=== PATIENT | female | born 1965 ===

== ENCOUNTER 2023-05-08 08:26 | Inpatient (IN) | payer OTHER ==
[~2023-05-08] VITALS: Ht 157.5 cm; Wt 58.5 kg
[2023-05-08] MEDS ORDERED: PRALUENT PO (09:39)
[2023-05-08 09:41] LABS: URINE APPEARANCE Clear; URINE BILIRRUBIN Negative (NEGATIVE); URINE BLOOD Negative; URINE COLOR Yellow; URINE GLUCOSE Negative (NEGATIVE); URINE LEUKOCYTE Negative; URINE NITRATE Negative; URINE PROTEIN Negative (NEGATIVE); URINE UROBILINOGEN 0.2 E.U./dl
[2023-05-08 09:45] LABS: URINE BACTERIA 21.4 uL (0.0-1933); URINE EPITHELIAL CELLS 6.4 uL (0.0-38.8); URINE RBC 2.4 uL (0.0-20.8); URINE WBC 36.4 uL (0.0-23.2)
[2023-05-08 10:10] LABS: HEMATOCRIT 39.1 % (36.0-45.00); HEMOGLOBIN 13.2 g/dL (12.0-15.00); MEAN CELL VOLUME 86.5 fL (80.00-100.00); MEAN CORPUSCULAR HEMOGLOBIN 29.1 pg (27.00-32.0); MEAN CORPUSCULAR HGB CONC 33.6 g/dl (32.0-36.0); PLATELET COUNT 237 K/uL (150-450); RED BLOOD COUNT 4.53 M/uL (4.00-6.00); RED CELL DISTRIBUTION WIDTH 14.1 % (11.5-14.5)
[2023-05-08 10:25] LABS: ALBUMIN 3.7 gm/dL (3.4-5.0); BILIRUBIN TOTAL 0.37 mg/dL (0.3-1.2); CALCIUM 9.9 mg/dL (8.5-10.1); CREATININE SERUM 0.86 mg/dL (0.55-1.02); GFR 68.01; GLOBULINA 3.6 G/DL (2.4-3.5); INR 0.98; PARTIAL THROMBOPLASTIN TIME 29.8 SECONDS (22.0-34.0); POTASSIUM 5.1 mEq/L (3.5-5.1); PROTHROMBIN TIME 10.3 SECONDS (9.0-11.5); TOTAL PROTEIN 7.3 gm/dL (6.4-8.2)
[2023-05-10] MEDS ORDERED: PRALUENT P75 MG/1 ML SUBCUTANEO (08:08)
[2023-05-10 15:51] LABS: CREATININE SERUM 0.78 mg/dL (0.55-1.02); GFR 76.12; POTASSIUM 4.84 mEq/L (3.5-5.1)
[2023-05-10 18:56] LABS: HEMATOCRIT 36.2 % (36.0-45.00); HEMOGLOBIN 11.8 g/dL (12.0-15.00); MEAN CELL VOLUME 87.1 fL (80.00-100.00); MEAN CORPUSCULAR HEMOGLOBIN 28.5 pg (27.00-32.0); MEAN CORPUSCULAR HGB CONC 32.7 g/dl (32.0-36.0); PLATELET COUNT 203 K/uL (150-450); RED BLOOD COUNT 4.16 M/uL (4.00-6.00)
[2023-05-11 06:25] LABS: HEMATOCRIT 31.5 % (36.0-45.00); HEMOGLOBIN 10.4 g/dL (12.0-15.00); MEAN CELL VOLUME 84.3 fL (80.00-100.00); MEAN CORPUSCULAR HEMOGLOBIN 27.9 pg (27.00-32.0); MEAN CORPUSCULAR HGB CONC 33.1 g/dl (32.0-36.0); PLATELET COUNT 231 K/uL (150-450); RED BLOOD COUNT 3.74 M/uL (4.00-6.00); RED CELL DISTRIBUTION WIDTH 13.9 % (11.5-14.5)
[2023-05-11 06:40] LABS: CALCIUM 8.4 mg/dL (8.5-10.1); CREATININE SERUM 0.91 mg/dL (0.55-1.02); GFR 63.72; POTASSIUM 4.31 mEq/L (3.5-5.1)
[2023-05-12 03:34] LABS: HEMATOCRIT 35.3 % (36.0-45.00); HEMOGLOBIN 11.8 g/dL (12.0-15.00); MEAN CELL VOLUME 85.4 fL (80.00-100.00); MEAN CORPUSCULAR HEMOGLOBIN 28.6 pg (27.00-32.0); MEAN CORPUSCULAR HGB CONC 33.4 g/dl (32.0-36.0); PLATELET COUNT 272 K/uL (150-450); RED BLOOD COUNT 4.14 M/uL (4.00-6.00)
[2023-05-12 04:00] LABS: BILIRUBIN TOTAL 0.31 mg/dL (0.3-1.2); CALCIUM 9.2 mg/dL (8.5-10.1); CREATININE SERUM 0.78 mg/dL (0.55-1.02); GFR 76.12; GLOBULINA 3.5 G/DL (2.4-3.5); POTASSIUM 4.03 mEq/L (3.5-5.1); TOTAL PROTEIN 6.5 gm/dL (6.4-8.2)
== END 2023-05-13 14:55 | disposition home or self-care (01) | DRG 740 ==
LOC: O/R 05-10 05:10 → OB/GYN 05-10 05:10 → SURH 05-10 08:25 → OB/GYN 05-10 10:52 → SURH 05-10 20:15 → OB/GYN 05-13 14:55
PROVIDERS: Obstetrics & Gynecology; ADMIT Obstetrics & Gynecology Gynecologic Oncology; ATTEND Obstetrics & Gynecology Gynecologic Oncology
PROC: 0UT70ZZ Resection of Bilateral Fallopian Tubes, Open Approach (ICD-10-PCS; 2023-05-10)
PROC: 0UT20ZZ Resection of Bilateral Ovaries, Open Approach (ICD-10-PCS; 2023-05-10)
PROC: 0DBW0ZZ Excision of Peritoneum, Open Approach (ICD-10-PCS; 2023-05-10)
PROC: 0FB00ZZ Excision of Liver, Open Approach (ICD-10-PCS; 2023-05-10)
PROC: 0DBU0ZZ Excision of Omentum, Open Approach (ICD-10-PCS; 2023-05-10)
PROC: 0UT90ZZ Resection of Uterus, Open Approach (ICD-10-PCS; principal; 2023-05-10 20:15)
DX: C54.1 Malignant neoplasm of endometrium (principal); C79.63 Secondary malignant neoplasm of bilateral ovaries; C79.82 Secondary malignant neoplasm of genital organs; Z20.822 Contact with and (suspected) exposure to COVID-19